=== PATIENT | female | born 1995 | race Caucasian/White ===

== ENCOUNTER 2022-11-06 10:59 | Emergency (ER) | payer OTHER ==
[~2022-11-06] VITALS: Ht 152.4 cm; Wt 54.4 kg
== END 2022-11-06 17:33 | disposition home or self-care (01) ==
LOC: ER 10:59
DX: O20.9 Hemorrhage in early pregnancy, unspecified (principal); Z3A.01 Less than 8 weeks gestation of pregnancy

== ENCOUNTER 2023-08-11 08:45 | Outpatient (CLI) | payer OTHER | END 2023-08-11 08:48 | disposition home or self-care (01) | LOC: PRENATAL 08:45 | PROVIDERS: ATTEND Obstetrics & Gynecology Maternal & Fetal Medicine | DX: O26.849 Uterine size-date discrepancy, unspecified trimester (principal); Z3A.15 15 weeks gestation of pregnancy ==

== ENCOUNTER 2023-12-07 08:53 | Outpatient (CLI) | payer OTHER ==
[~2023-12-07 08:53] MED LIST: PRENATAL CAPLE1 EAC1
== END 2023-12-07 08:54 | disposition home or self-care (01) ==
LOC: PRENATAL 08:53
PROVIDERS: ATTEND Obstetrics & Gynecology Maternal & Fetal Medicine
DX: O26.843 Uterine size-date discrepancy, third trimester (principal); O36.8130 Decreased fetal movements, third trimester, not applicable or unspecified; Z3A.32 32 weeks gestation of pregnancy

== ENCOUNTER 2024-01-17 17:38 | Outpatient (CLI) | payer OTHER ==
[2024-01-17 16:21] VITALS: BP 122/79
[2024-01-17] MEDS ORDERED: RINGERS SOLUTION,LACTATED 1,000 ML IV SCH (18:15)
[2024-01-17 18:29] LABS: PH,URINE 6.5 (5.0-8.0); URINE APPEARANCE Clear; URINE BILIRRUBIN Negative (NEGATIVE); URINE BLOOD Negative; URINE COLOR Yellow; URINE GLUCOSE Negative (NEGATIVE); URINE KETONE Negative (NEGATIVE); URINE LEUKOCYTE Negative; URINE NITRATE Negative; URINE PROTEIN Negative (NEGATIVE); URINE UROBILINOGEN 0.2 E.U./dl
[2024-01-17 18:32] LABS: HEMOGLOBIN 12.6 g/dL (12.0-15.00); MEAN CELL VOLUME 88.1 fL (80.00-100.00); MEAN CORPUSCULAR HEMOGLOBIN 29.9 pg (27.00-32.0); RED CELL DISTRIBUTION WIDTH 14.2 % (11.5-14.5)
[2024-01-17 18:37] LABS: PLATELET COUNT 127 K/uL (150-450)
[2024-01-17 18:39] LABS: URINE BACTERIA 1203.1 uL (0.0-1933); URINE EPITHELIAL CELLS 27.8 uL (0.0-38.8); URINE WBC 16.5 uL (0.0-23.2)
[2024-01-17 18:40] LABS: URINE RBC 0.9 uL (0.0-20.8)
[2024-01-17] MEDS ORDERED: ZYRTEC10 M3 (18:44)
[2024-01-17 20:51] VITALS: BP 138/66
[2024-01-17 23:45] VITALS: BP 125/66
[2024-01-18] MEDS ORDERED: ACETAMINOPHEN 500 MG GEL..CAP PO ONE (01:45)
[2024-01-18 04:20] VITALS: BP 123/57
[2024-01-18 07:49] VITALS: BP 120/61
[2024-01-18 12:24] VITALS: BP 116/76; O2SAT 98
[2024-01-18 15:15] VITALS: BP 122/81
[2024-01-18 19:00] VITALS: BP 125/83
[2024-01-18 20:07] VITALS: BP 125/83
== END 2024-01-18 11:21 | disposition home or self-care (01) ==
LOC: OBS/DEL 17:38
PROVIDERS: ATTEND Obstetrics & Gynecology Obstetrics
DX: O26.893 Other specified pregnancy related conditions, third trimester (principal); S37.892A Contusion of other urinary and pelvic organ, initial encounter; V49.9XXA Car occupant (driver) (passenger) injured in unspecified traffic accident, initial encounter; Z3A.38 38 weeks gestation of pregnancy

== ENCOUNTER 2024-01-25 22:08 | Inpatient (IN) | payer OTHER ==
[~2024-01-25] VITALS: Ht 152.4 cm; Wt 71.7 kg
[~2024-01-25 22:08] MED LIST changes: +ZYRTEC10 M3
[2024-01-25 23:23] LABS: PH,URINE 6.5 (5.0-8.0); URINE BILIRRUBIN Negative (NEGATIVE); URINE BLOOD Small; URINE COLOR Yellow; URINE GLUCOSE Negative (NEGATIVE); URINE KETONE Negative (NEGATIVE); URINE LEUKOCYTE Trace; URINE NITRATE Negative; URINE PROTEIN Negative (NEGATIVE); URINE UROBILINOGEN 0.2 E.U./dl
[2024-01-25 23:24] VITALS: BP 133/84
[2024-01-25 23:27] LABS: URINE BACTERIA 666.4 uL (0.0-1933); URINE EPITHELIAL CELLS 14.2 uL (0.0-38.8); URINE RBC 60.7 uL (0.0-20.8); URINE WBC 13.4 uL (0.0-23.2)
[2024-01-25 23:28] LABS: URINE APPEARANCE CLEAR; URINE CAST 0.45 uL (0.0-1.40)
[2024-01-26] VITALS (7 sets, daily range): BP systolic 105–136; BP diastolic 65–75; O2SAT 97–100
[2024-01-26 00:01] LABS: HEMATOCRIT 35.6 % (36.0-45.00); HEMOGLOBIN 12.2 g/dL (12.0-15.00); MEAN CELL VOLUME 88.5 fL (80.00-100.00); MEAN CORPUSCULAR HEMOGLOBIN 30.3 pg (27.00-32.0); MEAN CORPUSCULAR HGB CONC 34.2 g/dl (32.0-36.0); RED BLOOD COUNT 4.02 M/uL (4.00-6.00)
[2024-01-26 00:10] LABS: PLATELET COUNT 124 K/uL (150-450)
[2024-01-26 00:20] LABS: INR 0.97; PARTIAL THROMBOPLASTIN TIME 29.6 SECONDS (22.0-34.0); PROTHROMBIN TIME 10.6 SECONDS (9.0-11.5)
[2024-01-26 00:25] LABS: ALBUMIN 2.8 gm/dL (3.4-5.0); BILIRUBIN TOTAL 0.28 mg/dL (0.3-1.2); CREATININE SERUM 0.68 mg/dL (0.55-1.02); GFR 104.59; GLOBULINA 3.3 G/DL (2.4-3.5); POTASSIUM 4.09 mEq/L (3.5-5.1); TOTAL PROTEIN 6.1 gm/dL (6.4-8.2)
[2024-01-26] MEDS ORDERED: AMPICILLIN SODIUM 2,000 MG VIAL IV ONE (00:45)
[2024-01-26] MEDS ORDERED: RINGERS SOLUTION,LACTATED 1,000 ML IV SCH (00:45)
[2024-01-26] MEDS ORDERED: AMPICILLIN SODIUM 1,000 MG VIAL IV SCH (05:00)
[2024-01-26] MEDS ORDERED: MISOPROSTOL 25 MCG/4 ML GEL.W.APPL VAG NR ×2 (12:45→17:30)
[2024-01-26] MEDS ORDERED: PROMETHAZINE HCL 25 MG/ML AMPUL IV ONE (23:00)
[2024-01-26] MEDS ORDERED: MEPERIDINE HCL/PF 50 MG/ML VIAL IV ONE (23:00)
[2024-01-27] VITALS (8 sets, daily range): BP systolic 116–136; BP diastolic 59–87
[2024-01-27] MEDS ORDERED: PROMETHAZINE HCL 25 MG/ML AMPUL IV ONE (02:05)
[2024-01-27] MEDS ORDERED: MEPERIDINE HCL/PF 50 MG/ML VIAL IV ONE (02:05)
[2024-01-27] MEDS ORDERED: OXYTOCIN 500 ML IV ONE (04:00)
[2024-01-27] MEDS ORDERED: OXYTOCIN 1,000 ML IV SCH ×2 (05:45)
[2024-01-27] MEDS ORDERED: CHLORHEXIDINE GLUCONATE 120 ML BOTTLE TOP SCH (05:45)
[2024-01-27] MEDS ORDERED: IBUprofen 400 MG TABLET PO PRN ×2 (05:45)
[2024-01-27] MEDS ORDERED: CHLORHEXIDINE GLUCONATE 120 ML BOTTLE TP SCH (05:45)
[2024-01-27] MEDS ORDERED: ERYTHROMYCIN BASE OPHT 1GM EACH TUBE OP ONE (07:45)
[2024-01-27] MEDS ORDERED: NALOXONE HCL 0.4 MG/ML AMPUL IM ONE (07:45)
[2024-01-28 02:09] VITALS: BP 139/85
[2024-01-28 08:00] VITALS: BP 129/80
[2024-01-28 16:22] VITALS: BP 140/85
[2024-01-29 00:45] VITALS: BP 139/87
[2024-01-29 08:00] VITALS: BP 136/74
== END 2024-01-29 12:27 | disposition home or self-care (01) | DRG 807 ==
LOC: LDR 22:08 → OB/GYN 01-26 10:59
PROVIDERS: ADMIT Obstetrics & Gynecology Obstetrics; ATTEND Obstetrics & Gynecology Obstetrics
PROC: 4A1HXCZ Monitoring of Products of Conception, Cardiac Rate, External Approach (ICD-10-PCS; 2024-01-25)
PROC: 3E0P7VZ Introduction of Hormone into Female Reproductive, Via Natural or Artificial Opening (ICD-10-PCS; 2024-01-26)
PROC: 10E0XZZ Delivery of Products of Conception, External Approach (ICD-10-PCS; principal; 2024-01-27)
PROC: 3E033VJ Introduction of Other Hormone into Peripheral Vein, Percutaneous Approach (ICD-10-PCS; 2024-01-27)
DX: O69.81X0 Labor and delivery complicated by cord around neck, without compression, not applicable or unspecified (principal); Z37.0 Single live birth; Z3A.40 40 weeks gestation of pregnancy; Z20.822 Contact with and (suspected) exposure to COVID-19